=== PATIENT | female | born 1960 | race Caucasian/White ===

== ENCOUNTER → 2020-02-29 | Day surgery (SDC) | payer OTHER, BC ==
[~2020-02-29] VITALS: Ht 168.9 cm; Wt 81.6 kg
[~2020-02-29] MED LIST: ASPIRIN EC81 MG PO; HYDROCODON-ACE1 EAC4 PO; IBU800 MG PO; LEXAPRO20 MG PO; NORCO 10-325 T1 EACH PO; NORCO 5-325 TA1 EACH PO; PEPCID40 MG PO; PERCOCET 7.5-31 EACH PO; ROBAXIN-750750 MG PO; ROPINIROLE HCL0.5 MG PO; TUMS200 MG PO; ULTRAM50 MG PO; VISTARIL50 MG PO; ZOFRAN4 MG PO
[2020-02-29 09:54] LABS: HEMOGLOBIN 12.1 gm/dl (12.3-15.3); RED BLOOD COUNT 4.01 M/UL (4.00-5.10); WHITE BLOOD COUNT 6.8 K/UL (4.5-11.0)
[2020-02-29 10:08] LABS: BUN/CREATININE RATIO 19 (0-10)
== END | disposition home or self-care (01) ==
LOC: OR 09:08
PROVIDERS: Orthopaedic Surgery
DX: S82.852A Displaced trimalleolar fracture of left lower leg, initial encounter for closed fracture (principal); G25.81 Restless legs syndrome; M54.5 Low back pain; K21.9 Gastro-esophageal reflux disease without esophagitis; F41.9 Anxiety disorder, unspecified; W00.0XXA Fall on same level due to ice and snow, initial encounter; Z79.899 Other long term (current) drug therapy; Z79.891 Long term (current) use of opiate analgesic
CPT/HCPCS: 73610; 76000; 80048; 85025; C1713; J0171; J0690; J1100; J2001; J2250; J2405; J2704; J2765; J2795; J3010; J7120

== ENCOUNTER 2020-03-09 07:23 | Observation (INO) | payer BC, OTHER ==
[~2020-03-09] VITALS: Ht 167.6 cm; Wt 81.6 kg
[~2020-03-09 07:23] MED LIST changes: -ASPIRIN EC81 MG PO; -IBU800 MG PO; -PERCOCET 7.5-31 EACH PO; -ROBAXIN-750750 MG PO; -TUMS200 MG PO; -ULTRAM50 MG PO; -ZOFRAN4 MG PO
[2020-03-09] MEDS ORDERED: ROBAXIN-750750 MG PO (08:26)
[2020-03-09] MEDS ORDERED: VISTARIL50 MG PO (08:28)
[2020-03-09] MEDS ORDERED: IBU800 MG PO (08:30)
[2020-03-09] MEDS ORDERED: ULTRAM50 MG PO (08:30)
[2020-03-09] MEDS ORDERED: ZOFRAN4 MG PO (08:31)
[2020-03-09] MEDS ORDERED: TUMS200 MG PO (08:32)
[2020-03-09 08:51] LABS: HEMOGLOBIN 11.2 gm/dl (12.3-15.3); RED BLOOD COUNT 3.71 M/UL (4.00-5.10); WHITE BLOOD COUNT 4.8 K/UL (4.5-11.0)
[2020-03-10] MEDS ORDERED: ULTRAM50 MG PO (09:11)
[2020-03-10] MEDS ORDERED: PERCOCET 7.5-31 EACH PO (09:11)
[2020-03-10] MEDS ORDERED: ASPIRIN EC81 MG PO (09:11)
== END 2020-03-10 13:41 | disposition home or self-care (01) ==
LOC: OR 07:23 → M/S 17:24 → CDU 17:29 → OR 17:29 → M/S 18:32
PROVIDERS: ADMIT Orthopaedic Surgery
DX: S82.852A Displaced trimalleolar fracture of left lower leg, initial encounter for closed fracture (principal); G25.81 Restless legs syndrome; M54.5 Low back pain; K21.9 Gastro-esophageal reflux disease without esophagitis; Z98.890 Other specified postprocedural states; Z87.891 Personal history of nicotine dependence; X58.XXXA Exposure to other specified factors, initial encounter; Z79.899 Other long term (current) drug therapy; Z20.822 Contact with and (suspected) exposure to COVID-19; Z83.3 Family history of diabetes mellitus
CPT/HCPCS: 73610; 76000; 80048; 85027; 96374; 96375; 96376; C1713; G0378; J0592; J0690; J1100; J1170; J1885; J2001; J2250; J2405; J2704; J2765; J2795; J3010; J7120

== ENCOUNTER → 2020-09-07 | Outpatient (CLI) | payer BC, OTHER ==
[~2020-09-07] MED LIST changes: +ASPIRIN EC81 MG PO; +IBU800 MG PO; +PERCOCET 7.5-31 EACH PO; +ROBAXIN-750750 MG PO; +TUMS200 MG PO; +ULTRAM50 MG PO; +ZOFRAN4 MG PO
== END ==
LOC: EXRD 14:23
DX: Z13.820 Encounter for screening for osteoporosis (principal); M85.80 Other specified disorders of bone density and structure, unspecified site; M47.816 Spondylosis without myelopathy or radiculopathy, lumbar region; M16.12 Unilateral primary osteoarthritis, left hip
CPT/HCPCS: 77080

== ENCOUNTER → 2020-09-29 | Outpatient (CLI) | payer BC, OTHER | LOC: KOH-I 13:00 | DX: M81.8 Other osteoporosis without current pathological fracture (principal); M47.816 Spondylosis without myelopathy or radiculopathy, lumbar region; M51.36 Other intervertebral disc degeneration, lumbar region | CPT/HCPCS: 72100; 72170 ==

== ENCOUNTER → 2020-10-23 | Outpatient (CLI) | payer BC, OTHER | LOC: KOH-I 15:58 | DX: M25.551 Pain in right hip (principal) | CPT/HCPCS: 73502 ==

== ENCOUNTER → 2021-03-26 | Outpatient (CLI) | payer BC, OTHER | LOC: KOH-I 13:04 | DX: R10.11 Right upper quadrant pain (principal) | CPT/HCPCS: 71046 ==

== ENCOUNTER → 2021-03-27 | Outpatient (CLI) | payer BC, OTHER | LOC: KOH-I 13:42 | DX: R07.81 Pleurodynia (principal) | CPT/HCPCS: 71100 ==